=== PATIENT | female | born 1975 | race Caucasian/White ===

== ENCOUNTER 2020-07-05 15:05 | Emergency (ER) | payer MEDICARE ==
[2020-07-05 17:21] LABS: BILIRUBIN NEGATIVE (NEGATIVE); BLOOD NEGATIVE Ery/uL (NEGATIVE); CLARITY CLEAR (CLEAR); COLOR YELLOW (YELLOW); GLUCOSE (U) NORMAL (NORMAL); LEUKOCYTES NEGATIVE Leu/uL (NEGATIVE); NITRITE NEGATIVE (NEGATIVE); PROTEIN NEGATIVE (NEGATIVE); SPECIFIC GRAVITY <=1.005 (1.001-1.030); UROBILINOGEN 0.2 mg/dL (0.2-1.0); pH 6.5 (5.0-9.0)
[2020-07-05 17:26] LABS: AMPHETAMINES NEGATIVE (NEGATIVE); BARBITURATES NEGATIVE (NEGATIVE); ECSTASY (MDMA) NEGATIVE (NEGATIVE); MARIJUANA (THC) NEGATIVE (NEGATIVE); METHADONE NEGATIVE (NEGATIVE); OPIATES NEGATIVE (NEGATIVE); OXYCODONE NEGATIVE (NEGATIVE)
[2020-07-05 17:34] LABS: EOSINOPHIL 1.3 % (0-5); HCT 43.1 % (37.0-47.0); LYMPHOCYTE 27.7 % (15-48); MCH 32.4 pg (25.0-31.0); MCHC 32.5 g/dL (32.0-36.0); MCV 99.8 fL (78.0-100.0); MONOCYTE 4.9 % (0-12); NEUTROPHIL 64.8 % (41-80); NRBC 0; PLT 203 K/uL (150-400); RBC 4.32 M/uL (4.20-5.40); RDW 12.5 % (11.5-14.0)
[2020-07-05 18:03] LABS: ALBUMIN 4.1 g/dL (3.4-5.0); BILIRUBIN - TOTAL 0.3 mg/dL (0.2-1.0); CREATININE 0.69 mg/dL (0.51-0.95); GLOBULIN (CALCULATION) 3.6 g/dL; POTASSIUM 3.3 mmol/L (3.5-5.1); TOTAL PROTEIN 7.7 g/dL (6.4-8.2)
== END 2020-07-05 19:17 | disposition home or self-care (01) ==
LOC: FER 15:05
PROVIDERS: Emergency Medicine
DX: F41.1 Generalized anxiety disorder (principal); R63.4 Abnormal weight loss; I10 Essential (primary) hypertension; K21.9 Gastro-esophageal reflux disease without esophagitis; F17.210 Nicotine dependence, cigarettes, uncomplicated; Z79.899 Other long term (current) drug therapy
CPT/HCPCS: 36415; 80053; 80305; 81003; 84443; 85025; 93005